=== PATIENT | male | born 1995 | race African-American/Black ===

== ENCOUNTER 2019-12-09 18:20 | Emergency (ER) | payer SELFPAY ==
--- NOTE | ~2019-12-09 | CT_ITS ---
EXAMINATION: CT BRAIN W/O DATE: 12/09/2019 19:24 INDICATION: New onset of seizure. Dizziness. TECHNIQUE: Computed tomography (CT) of the head was performed without intravenous contrast. The dose- length product was 605.33 mGy-cm. The mA was adjusted according to patient size. Iterative reconstruc tion technique was employed. COMPARISON: No prior studies for comparison. FINDINGS: Normal brain parenchymal volume for age. Normal dai-white differentiation. No acute intrac ranial hemorrhage, infarction, mass or mass effect. No ventriculomegaly or midline shift. Midline sagittal images demonstrate a normal corpus callosum, c raniovertebral junction and sella turcica. Basilar cisterns are patent. Paranasal sinuses and mastoids are pneumatized. No depressed skull fractures. IMPRESSION: 1. No acute intracranial abnormality. Reviewed, dictated and finalized at [facility]. Reviewed, dictated and finalized at [facility]. NER INTERN
[2019-12-09 18:39] VITALS: PULSE 94; RESP 18; TEMP 36.3; O2SAT 98
--- NOTE | 2019-12-09 19:06 | ECG_ITS ---
Measurements Intervals [place] Rate: 88 P: 32 MS: 185 QRS: 83 QRSD: 91 T: 29 QT: 358 QTc: 434 Interpretive Statements SINUS RHYTHM WITH SINUS ARRHYTHMIA ATRIAL PREMATURE COMPLEX BORDERLINE R WAVE PROGRESSION, ANTERIOR LEADS BASELINE ARTIFACT- I, II, III, AVR, AVL, AVF, V1-V6 BORDERLINE ECG Electronically Signed On 12-10-2019 8:40:56 SOFTWARE DEVELOPER by Lyle Weaver D.O.
[2019-12-09 19:28] LABS: Basophils Absolute Auto 0.01 K/mm3 (0.00-0.10); Basophils Percent Auto 0.1 % (0.0-1.0); Eosinophils Absolute Auto 0.05 K/mm3 (0.02-0.50); Eosinophils Percent Auto 0.7 % (1.0-6.0); Hematocrit 44.9 % (40.0-54.0); Hemoglobin 15.6 g/dL (14.0-18.0); Immature Granulocyte Absolute 0.03 K/mm3 (0.00-0.00); Immature Granulocyte Percent A 0.4 % (0.0-0.0); Lymphocytes Percent Auto 18.7 % (18.0-42.0); Mean Corpuscular HGB Conc 34.7 g/dL (32.0-36.0); Mean Corpuscular Hemoglobin 30.1 pg (27.0-31.0); Mean Corpuscular Volume 86.5 fL (78.0-102.0); Mean Platelet Volume 11.2 fl (8.7-11.0); Monocytes Absolute Auto 0.71 K/mm3 (0.10-0.90); Monocytes Percent Auto 9.5 % (2.0-11.0); Neutrophils Absolute Auto 5.3 K/mm3 (1.7-7.2); Neutrophils Percent Auto 70.6 % (50.0-70.0); Platelet Count Result 235 K/mm3 (150-420); Red Blood Count 5.19 M/mm3 (4.70-6.10); Red Cell Distribution Width 12.2 % (11.6-14.4); White Blood Count 7.5 K/mm3 (4.8-10.8)
--- NOTE | 2019-12-09 19:35 | ED.GENADULT ---
HPI - General Adult General Chief complaint: Seizure Stated complaint: headache, face pain, dizzy, throwing up Source: patient Mode of arrival: ambulatory Limitations: no limitations History of Present Illness HPI narrative: Dwayne is a 23-year-old man with a history of HIV treated with Triumeq that had a possible witness for seizure yesterday. His neighbor reports he saw him through a window go down have convulsions and lose consciousness. Dwayne's neighbor came in to help him and found him the reportedly postictal. He was confused and had myalgias. Upon waking up today he still has significant body aches nausea, and abdominal pain. he denies ever having a seizure before. He is unsure of his CD4 count. He denies any fevers, chills, URI type symptoms. he does report a circumferential headache. MD complaint: possible for seizure Related Data Allergies Allergy/AdvReac Type Severity Reaction Status Date / Time No Known Allergies Allergy Verified 12/09/19 18:45 Review of Systems Constitutional: Constitutional: Denies chills, Reports fatigue and Denies fever(s) Eyes: Eyes: Denies change in vision ENT: Reports system reviewed and no additional complaints, except as documented Cardiovascular: Cardiovascular: Denies chest pain and Denies radiating jaw, neck or arm pain Respiratory: Respiratory: Denies cough and Denies dyspnea Gastrointestinal: Gastrointestinal: Reports abdominal pain Genitourinary: Genitourinary: Reports no additional male genitourinary complaints Musculoskeletal: Musculoskeletal: Reports myalgias Integumentary/Breasts: Skin/Breast: Reports system reviewed and no additional complaints, except as docu Neurologic: Reports system reviewed and no additional complaints, except as documented Psychiatric: Psychiatric: Reports no additional psychiatric complaints Endocrine: Endocrine: Reports no additional endocrine complaints Hematologic/Lymphatic: Hematologic/Lymphatic: Reports no additional hematologic/lymphatic complaints Allergic/Immunologic: Allergic/Immunologic: Reports no additional allergic/immunologic complaints [facility] Social History Social History Gender identity (if verbalized by the patient): Male Exam Const: General: healthy appearing, no acute distress and alert; No confusion Orientation/consciousness: patient oriented x3 Limitations: No altered mental status HENMT: Head: normal to inspection, no contusions, no hematomas and no lacerations Ears: external ears abnormal Mouth: Yes Normal oral and palatal mucosa present Eyes: Pupils: Equal, round and reactive pupils present EOM: EOMs intact bilaterally Direct Ophthalmoscopy: No photophobia Neck: Neck: normal visual inspection Resp: Effort & Inspection: normal respiratory effort, not labored, no retractions and not tachypneic Auscultation: clear to auscultation bilaterally Cardio: Rate: regular rate Rhythm: regular rhythm Heart sounds: no murmurs GI: GI Palp: Yes Soft to palpation, No Tenderness to palpation present (GI) and No Guarding due to palpation present (GI) Back/Spine/Pelvis: Back: no CVA tenderness Skin: General skin exam: normal color Rashes: no rashes Neuro: General: patient oriented x3 and moves all extremities Psych: Mental Status: mental status grossly normal Course Course Emergency Course: Dwayne was seen and evaluated. He was in no acute distress and did not appear postictal anyway. However his seizures were reported yesterday. Despite having a normal neuro exam a possible new seizure in an HIV-positive patient was highly concerning so CT of his head was ordered as well as labs. labs and CT were unremarkable. Because of this he was given Toradol for body aches and discharged. We discussed at length the need for him to establish care with a primary care doctors of that he may get a referral to a neurologist for further workup. He expressed understanding. He was given return precauti
[2019-12-09 19:44] LABS: Add Urine Microscopic? NO; Appearance Urine Clear (Clear); Bilirubin Urine Negative (Negative); Blood Urine Negative (Negative); Color Urine Yellow (Yellow); Glucose Urine UA Negative (Negative); Ketones Urine Negative (Negative); Leukocyte Esterase Ur Negative (Negative); Nitrate Urine Negative (Negative); Protein Urine Negative (Negative); Specific Grav Ur 1.015 (1.010-1.020); Urobilinogen Urine 0.2 mg/dL (0.2-1.0); pH Urine 8.5 (5.0-8.0)
[2019-12-09 19:46] LABS: Alanine Aminotransferase 19 U/L (16-63); Albumin Level 4.3 g/dL (3.4-5.0); Alkaline Phosphatase 78 U/L (46-116); Anion Gap 13.9 mmol/L (7-16); Aspartate Amino Transferase 14 U/L (15-37); Bilirubin,Total 0.5 mg/dL (0.00-1.00); Blood Urea Nitrogen 7 mg/dL (7-18); Calcium 8.9 mg/dL (8.5-10.1); Carbon Dioxide 30 mmol/L (21-32); Chloride 102 mmol/L (98-108); Estimated CRCL calculation 87 ml/min; Estimated Glomerular Filt Rate > 60; Glucose 83 mg/dL (70-99); Lipase 100 U/L (73-393); Osmolality Calculated 291 mOsm/kg (285-295); Potassium 3.9 mmol/L (3.5-5.1); Sodium 142 mmol/L (136-145); Total Protein 8.2 g/dL (6.4-8.2)
[2019-12-09 19:48] LABS: Influenza Control Valid (Valid)
[2019-12-09 19:48] LABS: Creatine Kinase 120 U/L (39-308); Ethanol < 3 mg/dL (0-6)
[2019-12-09 19:49] LABS: Amphetamine Screen Urine Negative (Negative); Barbiturate Screen Urine Negative (Negative); Benzodiazepines Screen Urine Negative (Negative); Cannabinoid Screen Urine Negative (Negative); Cocaine Screen Urine Negative (Negative); Methadone Screen Urine Negative (Negative); Opiate Screen Urine Negative (Negative); Phencyclidine Screen Urine Negative (Negative)
--- NOTE | 2019-12-09 19:59 | PC.NURSE ---
RESTING ON STREACHER. SIDE RAILS UP. FRIEND AT BEDSIDE. APPEARS COMFORTABLE.
[2019-12-09] MEDS: KETOROLAC 30 MG/ML VIAL (*BKC) (20:26)
[2019-12-09 20:37] VITALS: BP 142/82; PULSE 78; RESP 18; O2SAT 98
[2019-12-12 14:08] LABS: RPR Screen Reactive (Non-Reactive)
[2019-12-12 14:24] LABS: RPR Titer Reactive 1:1
[2019-12-14 17:48] LABS: FTA-ABS Reactive (Nonreactive)
== END 2019-12-09 20:39 | disposition home or self-care (01) ==
PROVIDERS: Emergency Provider Family Medicine
DX: R56.9 Unspecified convulsions (principal)
CPT/HCPCS: 36415; 70450; 80053; 80307; 81003; 82550; 83690; 85025; 86592; 87804; 93005; 96374; 99283; 99284; J1885

== ENCOUNTER 2020-01-25 05:10 | Emergency (ER) | payer SELFPAY ==
[2020-01-25 05:11] VITALS: BP 125/104; PULSE 73; RESP 16; TEMP 36.6; O2SAT 100
--- NOTE | 2020-01-25 05:20 | ED.ALLEREA ---
HPI - Allergic Reaction General Chief complaint: Allergic Reaction Stated complaint: allergic reaction Time Seen by Provider: 01/25/20 05:18 Source: patient Mode of arrival: ambulatory Limitations: no limitations History of Present Illness HPI narrative: Patient is a 24-year-old male who presents for evaluation of eye irritation and allergic reaction. Patient reports he has a latex glove allergy, use gloves 3 days ago at work, brushed his eyes after using them, states some powder from the gloves deposited around his face, and after washing off, the area did become red, raised and bumpy. Patient has experienced some itching around the eyes. No actual eye pain, vision changes or eye watering. No wheezing, cough, shortness of breath, diarrhea. Patient has history of glove allergy in the past. He has no food allergies known to him. No new soaps, lotions or detergents. Of note, patient is HIV positive, currently compliant with his antiretrovirals, recently moved from [place], but has established care with the [facility]. He has an appointment there tomorrow. Related Data Allergies Allergy/AdvReac Type Severity Reaction Status Date / Time No Known Allergies Allergy Verified 01/25/20 05:11 Review of Systems Review of Systems: Narrative: CONSTITUTIONAL: Denies fever, chills, or sweats. EYES: Denies visual changes, redness, or discharge. ENT: Denies rhinorrhea, congestion, sore throat, no difficulty swallowing CARDIOVASCULAR: Denies chest pain RESPIRATORY: Denies cough or dyspnea. GASTROINTESTINAL: Denies abdominal pain, nausea, vomiting, or diarrhea. SKIN: Eye irritation, itching, erythema PMFSH Past Medical History Medical History (Updated 01/25/20 @ 05:31 by Daphnie Mcgowan MD) HIV (human immunodeficiency virus infection) Social History Social History (Updated 01/25/20 @ 05:30 by Daphnie Mcgowan MD) Smoking status: Never smoker Alcohol intake: current Substance use: never Gender identity (if verbalized by the patient): Male Exam Narrative: Exam Narrative: GENERAL: Awake, alert, conversant HEAD: Normocephalic, atraumatic. EYES: PERRLA and EOMI. Mild erythema, itching, raised urticaria surrounding the eyes. Conjunctive are clear without exudate. ENT: Nares clear, no rhinorrhea or epistaxis. Mucous membranes moist. NECK: Supple. CHEST: No respiratory distress, breathing even and non labored HEART: Regular rate, sinus rhythm ABDOMEN:Non distended, non tender EXTREMITIES: Normal range of motion. No edema. SKIN: Warm, dry, no rash. No urticaria of the chest, back, extremities. NEURO:No focal deficits. Alert and oriented x3 Course Course Emergency Course: Patient presents for evaluation of eye irritation, consistent with mild allergic reaction, contact dermatitis. Patient without any signs of severe anaphylaxis or severe allergic reaction. Will give patient oral medications, he also be discharged home with this. Patient has appropriate follow-up for his other medical conditions. He was then discharged home. Vital Signs Vital signs: Vital Signs Temperature 36.6 C 01/25/20 05:11 Pulse Rate 73 01/25/20 05:11 Respiratory Rate 16 01/25/20 05:11 Blood Pressure 125/104 H 01/25/20 05:11 Pulse Oximetry 100 01/25/20 05:11 Temperature 36.6 C 01/25/20 05:11 Pulse Rate 73 01/25/20 05:11 Respiratory Rate 16 01/25/20 05:11 Blood Pressure 125/104 H 01/25/20 05:11 Pulse Oximetry 100 01/25/20 05:11 Discharge Plan Discharge Clinical Impression: Allergic reaction Qualifiers: Encounter type: initial encounter Qualified Code(s): T78.40XA - Allergy, unspecified, initial encounter Patient Disposition: Home, Self-Care Condition: Stable Instructions: General Allergic Reaction (ED) Additional Instructions: Please contact your primary care physician for follow up from this visit. If you experience worsening pain, vomiting that does not stop, bleeding
[2020-01-25] MEDS: FAMOTIDINE 20 MG TABLET PO (05:43)
[2020-01-25] MEDS: DEXAMETHASONE SOD PHOS INJ 4 MG/ML VIAL 10 MG BY MOUTH (05:43)
[2020-01-25 06:19] VITALS: BP 122/78; PULSE 88; RESP 17; O2SAT 97
== END 2020-01-25 06:20 | disposition home or self-care (01) ==
LOC: ANHED 05:36
PROVIDERS: Emergency Provider Emergency Medicine
DX: T65.811A Toxic effect of latex, accidental (unintentional), initial encounter (principal); H57.89 Other specified disorders of eye and adnexa; Z21 Asymptomatic human immunodeficiency virus [HIV] infection status
CPT/HCPCS: 99283; A9270; J1100

== ENCOUNTER 2020-01-26 16:15 | Emergency (ER) | payer SELFPAY ==
--- NOTE | ~2020-01-26 | XR_ITS ---
EXAMINATION: XR chest 2V DATE: 01/26/2020 16:51 INDICATION: Hiccups TECHNIQUE: PA and lateral views of the chest are obtained. COMPARISON: None available FINDINGS: There are minimal airspace opacities in the left lower lobe. There is no pleural effusion o r pneumothorax. The cardiomediastinal silhouette is normal. The visualized bones and soft tissues are unremarkable. IMPRESSION: 1. Minimal airspace opacities of the left lower lobe, consistent with pneumonia versus atelectasis. Reviewed, dictated and finalized at [facility].
[2020-01-26 16:21] VITALS: BP 126/90; PULSE 89; RESP 16; TEMP 36.6; O2SAT 98
--- NOTE | 2020-01-26 16:30 | ED.GENADULT ---
HPI - General Adult General Chief complaint: Unspecified Stated complaint: hiccups, back pain Time Seen by Provider: 01/26/20 16:30 Source: patient Mode of arrival: ambulatory Limitations: no limitations History of Present Illness HPI narrative: Patient is a 24 year old male who presents to the emergency department with complaints of constant hiccups since last night. Patient was seen in this ED yesterday for a rash under his right eye. He states that he forgot that he was allergic to latex and he had latex gloves on and touched his right eye. He was prescribed a steroid and discharged home last night. He then notes constant hiccups that started in the middle of the night. He woke up and vomited a burgundy color. Patient reports right upper back pain from his hiccups that worsens when he is walking. He tried some home remedies for the hiccups with no relief. His hiccups worsen after he eats. He denies cough, cold, fever, sore throat, nausea, or diarrhea. He has not taken any pain medications. Patient has a history of HIV, seizures, and an appendectomy. His fiance is in the room and he recently moved her from [place]. complaint: Hiccups Onset (ago): day(s) (last night) Pain Consistency: constant Relieving factors: none Exacerbating factors: eating Associated symptoms: other (back pain, vomiting) Related Data Allergies Allergy/AdvReac Type Severity Reaction Status Date / Time No Known Allergies Allergy Verified 01/26/20 16:26 Review of Systems Review of Systems: All systems reviewed & are unremarkable except as noted in HPI and below Constitutional: Constitutional: Denies chills, Denies fever(s) and Reports other (hiccups) Eyes: Eyes: Reports other (rash 0.5inches x 0.5inches under right eye) ENT: Denies sore throat Respiratory: Respiratory: Denies cough Gastrointestinal: Gastrointestinal: Denies diarrhea, Denies nausea and Reports vomiting Musculoskeletal: Musculoskeletal: Reports back pain Integumentary/Breasts: Skin/Breast: Reports rash (under right eye) [facility] Past Medical History Medical History HIV (human immunodeficiency virus infection) Seizure Surgical History Surgical History Hx of appendectomy Social History Social History Smoking status: Never smoker Alcohol intake: current Substance use: never Gender identity (if verbalized by the patient): Male Exam Const: General: cooperative, healthy appearing and no acute distress HENMT: Head: normocephalic and atraumatic Mouth: Yes moist mucous membranes Eyes: Pupils: Equal, round and reactive pupils present EOM: EOMs intact bilaterally Neck: Neck: supple Resp: Effort & Inspection: normal respiratory effort and no respiratory distress Auscultation: clear to auscultation bilaterally Cardio: Rate: regular rate Rhythm: regular rhythm Heart sounds: no murmurs GI: Inspection: normal to inspection and non-distended GI Palp: No abdominal tenderness and Yes Soft to palpation Auscultation: normal bowel sounds Back/Spine/Pelvis: Back: No back tenderness and other (decreased ROM when sitting up) Skin: Rashes: rashes noted (0.5inx.5 inch rash under rt eye) Neuro: General: patient oriented x3 (alert) and no focal motor deficits Extrem: General: full ROM and no edema Psych: Mental Status: mental status grossly normal Affect: normal affect Course Vital Signs Vital signs: Vital Signs Temperature 97.8 F 01/26/20 16:21 Pulse Rate 89 01/26/20 16:21 Respiratory Rate 16 01/26/20 16:21 Blood Pressure 126/90 01/26/20 16:21 Pulse Oximetry 98 01/26/20 16:21 Temperature 97.8 F 01/26/20 16:21 Pulse Rate 78 01/26/20 18:11 Respiratory Rate 18 01/26/20 18:11 Blood Pressure 138/75 01/26/20 18:11 Pulse Oximetry 98 01/26/20 18:11 Medical Decision Making V
[2020-01-26] MEDS: AZITHROMYCIN 250 MG TABLET 1000 MG PO (18:10)
[2020-01-26 18:11] VITALS: BP 138/75; PULSE 78; RESP 18; O2SAT 98
== END 2020-01-26 18:12 | disposition home or self-care (01) ==
PROVIDERS: Emergency Provider Emergency Medicine
DX: R06.6 Hiccough (principal); J18.9 Pneumonia, unspecified organism; G40.909 Epilepsy, unspecified, not intractable, without status epilepticus; Z21 Asymptomatic human immunodeficiency virus [HIV] infection status
CPT/HCPCS: 71046; 99283; A9270

== ENCOUNTER 2020-03-02 14:24 | Outpatient (NON) | payer MEDICAID, SELFPAY ==
[2020-03-03 13:05] LABS: SARS-CoV-2 RNA PCR Negative
== END 2020-03-02 14:25 ==
PROVIDERS: PCP Family Medicine; Visit Provider Family Medicine
DX: R50.9 Fever, unspecified (principal); Z20.828 Contact with and (suspected) exposure to other viral communicable diseases
CPT/HCPCS: 87635; U0003

== ENCOUNTER 2020-04-22 21:35 | Emergency (ER) | payer MEDICAID, SELFPAY ==
--- NOTE | ~2020-04-22 | CT_ITS ---
EXAMINATION: CT brain wo con DATE: 04/22/2020 22:23 INDICATION: Severe generalized headache radiating to neck. The puncture 2 days ago. TECHNIQUE: Computed tomography (CT) of the head was performed without intravenous contrast. The mA wa s adjusted according to patient size. Iterative reconstruction technique was employed. Exam dose: 83 2.33 mGy-cm total exam DLP. COMPARISON: 12/09/2019 CT brain FINDINGS: No intracranial mass lesion or hemorrhage, midline shift or mass effect. Normal ventricular size. No subdural or epidural hematoma. No evidence of skull fracture. No fracture or bone destruction of the cranial vault. Included paranasal sinuses and mastoid air cell s are normally developed and aerated. IMPRESSION: Negative Reviewed, dictated and finalized at [facility]. Reviewed, dictated and finalized at location [facility]. IMPRESSION: Negative
[2020-04-22 21:35] VITALS: BP 139/70; PULSE 74; RESP 22; TEMP 36.6; O2SAT 100
[2020-04-22] MEDS: MORPHINE SULFATE 4 MG/ML INJ IV PUSH (22:01)
[2020-04-22] MEDS: ONDANSETRON INJ 4 MG/2 ML VIAL IV PUSH (22:01)
--- NOTE | 2020-04-22 22:03 | ED.HA ---
HPI - Headache General Chief Complaint: Headache Stated Complaint: head ache, pain in neck Source: patient and family Mode of arrival: ambulatory Limitations: no limitations History of Present Illness HPI Narrative: Patient is a 24-year-old male who presents to the emergency department after being hospitalized in the ICU for status epilepticus he was just released yesterday. Patient states that he did have a lumbar puncture x2 2 days ago since that time he has developed a headache. Patient states that the headache is much more severe if he has upward upright, it does get better if he is laying down. Patient states that he was nauseated and did have an emesis yesterday, although today he has been able to tolerate a meal and several glasses of tea. He has been taking Tylenol and Motrin without much relief. Patient denies fevers chills nausea or vomiting. Patient denies any chest pain shortness of breath or other abdominal complaints. Patient does have a diagnosis of HIV as well, and has been noncompliant with both his HIV meds and the epilepsy meds. Says he was discharged from the hospital he has been taking them for the most part. MD elicited complaint: headache Onset (ago): day(s) Onset description: gradually Location: diffuse Severity: moderate Quality & Timing: aching and throbbing Exacerbating factors: sitting/standing Relieving factors: rest ( Laying down) Context: recent spinal/epidural procedure Associated symptoms: nausea, vomiting and photophobia Treatments prior to arrival: acetaminophen and ibuprofen Related Data Home Medications Medication Instructions Recorded Confirmed abacavir 600 mg-dolutegravir 50 1 tablet PO DAILY 03/02/20 04/22/20 mg-lamivudine 300 mg tablet levetiracetam [Keppra] 250 mg PO BID 04/22/20 04/22/20 Allergies Allergy/AdvReac Type Severity Reaction Status Date / Time No Known Allergies Allergy Verified 03/02/20 13:40 Review of Systems Review of Systems: All systems reviewed & are unremarkable except as noted in HPI and below Constitutional: Constitutional: Denies as per HPI, Denies no additional constitutional complaints, Denies chills, Denies fatigue, Denies fever(s) and Denies weakness Eyes: Eyes: Denies as per HPI, Denies no additional eye complaints, Denies change in vision and Reports photophobia ENT: Denies system reviewed and no additional complaints, except as documented, Denies as per HPI, Denies dysphagia, Denies vertigo, Denies dizziness, Denies epistaxis, Denies nasal congestion and Denies sore throat Cardiovascular: Cardiovascular: Denies as per HPI, Denies no additional cardiovascular complaints, Denies chest pain, Denies rapid heart rate, Denies radiating jaw, neck or arm pain and Denies slow heart rate Respiratory: Respiratory: Denies as per HPI, Denies no additional respiratory complaints, Denies chest congestion, Denies cough, Denies dyspnea and Denies wheezing Gastrointestinal: Gastrointestinal: Denies as per HPI, Denies no additional gastrointestinal complaints, Denies abdominal pain, Denies bloating, Denies constipation, Denies heartburn, Denies diarrhea, Reports nausea and Reports vomiting Musculoskeletal: Musculoskeletal: Reports back pain, Denies myalgias, Denies arthralgias, Denies joint swelling and Reports muscle cramps Comments: neck pain bilaterally Neurologic: Denies confusion, Denies vertigo, Denies dizziness, Denies syncope, Reports headache(s), Denies focal weakness, Denies numbness and Denies weakness Psychiatric: Psychiatric: Reports no additional psychiatric complaints Endocrine: Endocrine: Reports no additional endocrine complaints Hematologic/Lymphatic: Hematologic/Lymphatic: Reports no additional hematologic/lymphatic complaints Allergic/Immunologic: Allergic/Immunologic: Reports no additional allergic/immunologic complaints PMFSH Past Medical History Medical History HIV (human immunodefi
[2020-04-22 22:10] LABS: Hematocrit 41.1 % (40.0-54.0); Hemoglobin 15.1 g/dL (14.0-18.0); Mean Corpuscular HGB Conc 36.7 g/dL (32.0-36.0); Mean Corpuscular Hemoglobin 30.2 pg (27.0-31.0); Mean Corpuscular Volume 82.2 fL (78.0-102.0); Mean Platelet Volume 10.9 fl (8.7-11.0); Platelet Count Result 284 K/mm3 (150-420); Red Cell Distribution Width 11.8 % (11.6-14.4); White Blood Count 9.1 K/mm3 (4.8-10.8)
[2020-04-22 22:20] LABS: INR 1.1; Prothrombin Time 11.3 Seconds (9.64-11.0)
[2020-04-22 22:25] LABS: Acetaminophen 0 ug/mL (10-30); Alanine Aminotransferase 30 U/L (16-63); Albumin Level 3.9 g/dL (3.4-5.0); Alkaline Phosphatase 67 U/L (46-116); Anion Gap 14.2 mmol/L (7-16); Aspartate Amino Transferase 12 U/L (15-37); Bilirubin,Total 0.6 mg/dL (0.00-1.00); Blood Urea Nitrogen 13 mg/dL (7-18); Calcium 8.9 mg/dL (8.5-10.1); Carbon Dioxide 25 mmol/L (21-32); Chloride 104 mmol/L (98-108); Estimated CRCL calculation 105 ml/min; Estimated Glomerular Filt Rate > 60; Glucose 109 mg/dL (70-99); Osmolality Calculated 291 mOsm/kg (285-295); Potassium 3.2 mmol/L (3.5-5.1); Sodium 140 mmol/L (136-145); Total Protein 7.7 g/dL (6.4-8.2)
[2020-04-22 22:41] LABS: Band Neutrophils Percent 0 % (0-6); Basophils Percent Manual 0 % (0-1); Eosinophils Absolute Manual 0.09 K/mm3 (0.02-0.5); Eosinophils Percent Manual 1 % (1-6); Lymphocytes Absolute Manual 2.36 K/mm3 (1.1-4.5); Lymphocytes Percent Manual 26 % (18-44); Monocytes Absolute Manual 1.36 K/mm3 (0.1-0.90); Monocytes Percent Manual 15 % (3-9); Neutrophils Absolute Manual 5.27 K/mm3 (1.3-6.7); Neutrophils Percent Manual 58 % (46-73); Platelet Estimate Adequate (Adequate)
--- NOTE | 2020-04-22 22:45 | PC.NURSE ---
ICE WATER PROVIDED TO PATIENT PER ERP APPROVAL
--- NOTE | 2020-04-22 23:26 | PC.NURSE ---
[facility] CONTACTED BY [facility] FOR POSSIBLE TRANSFER
[2020-04-22 23:30] VITALS: BP 141/77; PULSE 80; RESP 15; O2SAT 100
--- NOTE | 2020-04-22 23:32 | PC.NURSE ---
REPORT PROVIDED TO SELIN ONTIVEROS
--- NOTE | 2020-04-22 23:34 | PC.NURSE ---
Report received, pt. resting c s.o. at bedside VSS, awaiting call back from [facility] to speak c ERP.
--- NOTE | 2020-04-22 23:57 | PC.NURSE ---
Pt. lying supine, requesting something to eat, stating he is hungry. Chips and crackers given, pt. milly. well. Requesting pain med and states H/A is still there . Awaiting call from [facility] to speak c ERP. Pt. and S.O. updated on status.
[2020-04-23] MEDS: MORPHINE SULFATE 4 MG/ML INJ IV PUSH ×2 (00:05→02:33)
--- NOTE | 2020-04-23 00:33 | PC.NURSE ---
Call back from [facility]. Spoke c ADELITA Vance and they accept for transfer. Transfer paperwork signed.
[2020-04-23 01:01] VITALS: BP 127/85; PULSE 75; RESP 20; TEMP 36.7; O2SAT 99
--- NOTE | 2020-04-23 01:07 | PC.NURSE ---
Pt. resting, requesting water to drink, VSS, awaiting call back from [facility] for bed assignment and report.
[2020-04-23 01:08] VITALS: BP 130/85; PULSE 84; RESP 20; TEMP 36.6; O2SAT 98
[2020-04-23 02:14] VITALS: BP 130/75; PULSE 82; RESP 20; TEMP 36.8; O2SAT 99
--- NOTE | 2020-04-23 02:18 | PC.NURSE ---
Call back c bed assignment from [facility]. Call page placed to [email or web address] for transfer.
--- NOTE | 2020-04-23 02:51 | PC.NURSE ---
Report given to [facility] crew, pt. transfers to cot s difficulty.
== END 2020-04-23 02:52 | disposition short-term general hospital (02) ==
PROVIDERS: Emergency Provider Emergency Medicine
DX: G97.1 Other reaction to spinal and lumbar puncture (principal); B20 Human immunodeficiency virus [HIV] disease
CPT/HCPCS: 36415; 70450; 80053; 80307; 85025; 85610; 96374; 96375; 96376; 99283; 99285; J2270; J2405

== ENCOUNTER 2020-08-23 19:23 | Emergency (ER) | payer SELFPAY ==
[2020-08-23 19:30] VITALS: BP 108/67; PULSE 90; RESP 16; TEMP 36.6; O2SAT 98
--- NOTE | 2020-08-23 20:47 | ED.HA ---
HPI - Headache General Chief Complaint: Headache Stated Complaint: headache Source: patient Mode of arrival: ambulatory Limitations: no limitations History of Present Illness HPI Narrative: Patient says he had a headache at work. He said he got upset about his managers telling him what to do and he had too much to do. Because of this he say he got upset and developed a headache. MD elicited complaint: headache Pertinent past history: HIV (He is taking Truvada for HIV. He says he has had headaches with his medicines for many months and nothing has changed with thes headaches. They usually involve his whole head and come and go quickly within an hour. The headache started while he was at work and resolved before he came here. ) Onset description: suddenly Location: diffuse Severity: moderate Pain scale (0-10): 5 Quality & Timing: aching and similar to previous headaches Exacerbating factors: other (stress) Relieving factors: other (leaving work) Associated symptoms: other (stress) Treatments prior to arrival: other (relaxation) Related Data Home Medications Medication Instructions Recorded Confirmed levetiracetam [Keppra] 500 mg PO BID 04/22/20 08/23/20 Truvada 1 tab-cap PO DAILY 08/23/20 08/23/20 Allergies Allergy/AdvReac Type Severity Reaction Status Date / Time No Known Allergies Allergy Verified 03/02/20 13:40 Review of Systems Review of Systems: Narrative: Review of systems negative, except as noted in HPI. Neurologic: Comments: No other symptoms PMFSH Past Medical History Medical History HIV (human immunodeficiency virus infection) Seizure Surgical History Surgical History Hx of appendectomy Family History Family History (Updated 08/23/20 @ 21:50 by Tariq Boggs MD) Father Hypertension Mother Epilepsy Social History Social History Smoking status: Former smoker Alcohol intake: current Substance use: never Gender identity (if verbalized by the patient): Male Exam Narrative: Exam Narrative: Cheerful, in no distress, says he came in to get a note for work, but his headache has resolved. Const: Orientation/consciousness: patient oriented x3 HENMT: Head: normal to inspection Ears: external ears normal and TM's normal bilaterally General nose exam: Normal nares present Face and sinus: normal facial exam Mouth: Yes Normal oral and palatal mucosa present Eyes: EOM: EOMs intact bilaterally Neck: Neck: no meningeal signs Chest: Chest palpation & inspection: normal inspection of the chest Resp: Effort & Inspection: normal respiratory effort Auscultation: clear to auscultation bilaterally Cardio: Rate: regular rate Rhythm: regular rhythm GI: GI Palp: Yes Soft to palpation Auscultation: normal bowel sounds : Testes: Testes normal Skin: General skin exam: normal color Neuro: General: patient oriented x3, moves all extremities and CN's II-XI intact bilaterally Extrem: General: normal to inspection Psych: Mental Status: mental status grossly normal Course Course Emergency Course: I told him I would provide him with a note for work after he was examined. As he needed nothing else I asked him to follow up with his doctor as soon as possible, and he was discharged. I did not feel I should change any of his medications, and since his headaches have been going on long-term and are unchanged, I felt no testing was needed now. He has not been off his medications. Vital Signs Vital signs: Vital Signs Temperature 36.6 C 08/23/20 19:30 Pulse Rate 90 08/23/20 19:30 Respiratory Rate 16 08/23/20 19:30 Blood Pressure 108/67 08/23/20 19:30 Pulse Oximetry 98 08/23/20 19:30 Temperature 36.6 C 08/23/20 19:30 Pulse Rate 90 08/23/20 19:30 Respiratory Rate 16 08/23/20 19:30 Blood Pressure
== END 2020-08-23 20:00 | disposition home or self-care (01) ==
PROVIDERS: Emergency Provider Emergency Medicine
DX: R51.9 Headache, unspecified (principal); B20 Human immunodeficiency virus [HIV] disease; R56.9 Unspecified convulsions
CPT/HCPCS: 99281

== ENCOUNTER 2020-08-31 17:29 | Emergency (ER) | payer SELFPAY ==
[2020-08-31 17:40] VITALS: BP 110/60; PULSE 99; RESP 16; TEMP 36.9; O2SAT 98
--- NOTE | 2020-08-31 18:27 | ED.GENADULT ---
HPI - General Adult General Chief complaint: Unspecified Stated complaint: fever Related Data Home Medications Medication Instructions Recorded Confirmed levetiracetam [Keppra] 500 mg PO BID 04/22/20 08/31/20 Truvada 1 tab-cap PO DAILY 08/23/20 08/31/20 Allergies Allergy/AdvReac Type Severity Reaction Status Date / Time No Known Allergies Allergy Verified 03/02/20 13:40 PMFSH Past Medical History Medical History (Updated 08/31/20 @ 18:32 by Tariq Boggs MD) HIV (human immunodeficiency virus infection) Seizure Surgical History Surgical History Hx of appendectomy Family History Family History (Updated 08/23/20 @ 21:50 by Tariq Boggs MD) Father Hypertension Mother Epilepsy Social History Social History Smoking status: Former smoker Alcohol intake: current Substance use: never Gender identity (if verbalized by the patient): Male Discharge Plan Discharge Clinical Impression: Fever Patient Disposition: Home, Self-Care Condition: Stable Instructions: Antibiotic Form Additional Instructions: Follow up with HIV doctor by Saturday Prescriptions: No Action levetiracetam [Keppra] 250 mg Tablet 500 mg PO BID RF: 0 Truvada 1 tab-cap PO DAILY RF: 0 Follow-up/Referrals: UNKNOWN,DOCTOR [Primary Care Provider] - Stand Alone Forms: Work/School Release IP Time of Disposition: 18:30
[2020-08-31 18:35] VITALS: PULSE 100; RESP 14; O2SAT 97
--- NOTE | 2020-08-31 18:47 | ED.GENADULT ---
HPI - General Adult General Chief complaint: Unspecified Stated complaint: fever Time Seen by Provider: 08/31/20 18:35 Source: patient Mode of arrival: ambulatory Limitations: no limitations History of Present Illness HPI narrative: Patient comes in stating he had a fever today of 100.5. Because of this he was forced to leave work he says. He wants a note stating he was seen here, and that he is ok. THe Rn asked him if he wanted a covid test or any labs. He refuses any testing. I also spoke with him and he refuses any testing. He denies any symptoms. Related Data Home Medications Medication Instructions Recorded Confirmed levetiracetam [Keppra] 500 mg PO BID 04/22/20 08/31/20 Truvada 1 tab-cap PO DAILY 08/23/20 08/31/20 Allergies Allergy/AdvReac Type Severity Reaction Status Date / Time No Known Allergies Allergy Verified 03/02/20 13:40 Review of Systems Review of Systems: All systems reviewed & are unremarkable except as noted in HPI and below (He denies any symptoms except temp of 100.5 earlier today.) [facility], [facility] Past Medical History Medical History HIV (human immunodeficiency virus infection) Seizure Surgical History Surgical History Hx of appendectomy Family History Family History Father Hypertension Mother Epilepsy Social History Social History Smoking status: Former smoker Alcohol intake: current Substance use: never Gender identity (if verbalized by the patient): Male Course Vital Signs Vital signs: Vital Signs Temperature 36.9 C 08/31/20 17:40 Pulse Rate 99 08/31/20 17:40 Respiratory Rate 16 08/31/20 17:40 Blood Pressure 110/60 08/31/20 17:40 Pulse Oximetry 98 08/31/20 17:40 Temperature 36.9 C 08/31/20 17:40 Pulse Rate 100 08/31/20 18:35 Respiratory Rate 14 08/31/20 18:35 Blood Pressure 110/60 08/31/20 17:40 Pulse Oximetry 97 08/31/20 18:35 Medical Decision Making Vital Signs Vital Signs: Vital Signs Temperature 36.9 C 08/31/20 17:40 Pulse Rate 99 08/31/20 17:40 Respiratory Rate 16 08/31/20 17:40 Blood Pressure 110/60 08/31/20 17:40 Pulse Oximetry 98 08/31/20 17:40 Temperature 36.9 C 08/31/20 17:40 Pulse Rate 100 08/31/20 18:35 Respiratory Rate 14 08/31/20 18:35 Blood Pressure 110/60 08/31/20 17:40 Pulse Oximetry 97 08/31/20 18:35 Discharge Plan Discharge Clinical Impression: Fever Qualifiers: Fever type: unspecified Qualified Code(s): R50.9 - Fever, unspecified Patient Disposition: Home, Self-Care Condition: Stable Instructions: Fever in Adults (ED), HIV Infection (ED) Additional Instructions: Follow up with HIV doctor by Saturday Prescriptions: No Action levetiracetam [Keppra] 250 mg Tablet 500 mg PO BID RF: 0 Truvada 1 tab-cap PO DAILY RF: 0 Follow-up/Referrals: UNKNOWN,DOCTOR [Primary Care Provider] - Stand Alone Forms: Work/School Release IP Time of Disposition: 18:30
--- NOTE | 2020-08-31 18:55 | ED.GENADULT ---
HPI - General Adult General Chief complaint: Unspecified Stated complaint: fever Time Seen by Provider: 08/31/20 18:35 Source: patient Mode of arrival: ambulatory Limitations: no limitations History of Present Illness HPI narrative: He states he comes in to get note so he may return to work. He left because he had a temp of 100.5 earlier today, and was forced to leave Related Data Home Medications Medication Instructions Recorded Confirmed levetiracetam [Keppra] 500 mg PO BID 04/22/20 08/31/20 Truvada 1 tab-cap PO DAILY 08/23/20 08/31/20 Allergies Allergy/AdvReac Type Severity Reaction Status Date / Time No Known Allergies Allergy Verified 03/02/20 13:40 Review of Systems Review of Systems: Narrative: He denies any other symptoms except as above, temperature of 100.5 earlier today. He denies any cough or shortness of breath or runny nose. PMFSH Past Medical History Medical History HIV (human immunodeficiency virus infection) Seizure Surgical History Surgical History Hx of appendectomy Family History Family History Father Hypertension Mother Epilepsy Social History Social History Smoking status: Former smoker Alcohol intake: current Substance use: never Gender identity (if verbalized by the patient): Male Exam Const: General: no acute distress HENMT: Head: normal to inspection Ears: TM abnormal Face and sinus: normal facial exam Teeth and gingiva: dentition normal Eyes: Conjunctivae: conjunctivae normal Neck: Neck: normal visual inspection and no lymphadenopathy Chest: Chest palpation & inspection: normal inspection of the chest Resp: Effort & Inspection: normal respiratory effort Auscultation: clear to auscultation bilaterally Cardio: Rate: regular rate Rhythm: regular rhythm GI: GI Palp: Yes Soft to palpation Auscultation: normal bowel sounds Skin: General skin exam: normal color Neuro: General: patient oriented x3 and moves all extremities Speech: normal speech Extrem: General: normal to inspection Psych: Appearance: grossly normal Mental Status: mental status grossly normal Affect: normal affect Thought content: Yes Normal thought content present Course Course Emergency Course: I provided him with a note, stating he did not appear to be ill, and the time he was seen. I asked him to follow up with his infectious disease doctor no later than Saturday. He said he would. Vital Signs Vital signs: Vital Signs Temperature 36.9 C 08/31/20 17:40 Pulse Rate 99 08/31/20 17:40 Respiratory Rate 16 08/31/20 17:40 Blood Pressure 110/60 08/31/20 17:40 Pulse Oximetry 98 08/31/20 17:40 Temperature 36.9 C 08/31/20 17:40 Pulse Rate 100 08/31/20 18:35 Respiratory Rate 14 08/31/20 18:35 Blood Pressure 110/60 08/31/20 17:40 Pulse Oximetry 97 08/31/20 18:35 Medical Decision Making Vital Signs Vital Signs: Vital Signs Temperature 36.9 C 08/31/20 17:40 Pulse Rate 99 08/31/20 17:40 Respiratory Rate 16 08/31/20 17:40 Blood Pressure 110/60 08/31/20 17:40 Pulse Oximetry 98 08/31/20 17:40 Temperature 36.9 C 08/31/20 17:40 Pulse Rate 100 08/31/20 18:35 Respiratory Rate 14 08/31/20 18:35 Blood Pressure 110/60 08/31/20 17:40 Pulse Oximetry 97 08/31/20 18:35 Discharge Plan Discharge Clinical Impression: Fever Qualifiers: Fever type: unspecified Qualified Code(s): R50.9 - Fever, unspecified Patient Disposition: Home, Self-Care Condition: Stable Instructions: Fever in Adults (ED), HIV Infection (ED) Additional Instructions: Follow up with HIV doctor by Saturday Prescriptions: No Action levetiracetam [Keppra] 250 mg Tablet 500 mg PO BID RF: 0 Truvada 1 tab-cap PO DAILY
== END 2020-08-31 18:36 | disposition home or self-care (01) ==
PROVIDERS: Emergency Provider Emergency Medicine
DX: R50.9 Fever, unspecified (principal)
CPT/HCPCS: 99281; 99282

== ENCOUNTER 2023-07-29 18:11 | Emergency (ER) | payer OTHER, SELFPAY ==
[2023-07-29 18:13] VITALS: BP 138/98; PULSE 90; RESP 19; TEMP 36.6; O2SAT 98
--- NOTE | 2023-07-29 18:41 | ED.NAVMDI ---
HPI - Nausea/Vomiting/Diarrhea General Chief complaint: Nausea/Vomiting/Diarrhea Stated complaint: nausea Time Seen by Provider: 07/29/23 18:29 Source: patient Mode of arrival: ambulatory Limitations: no limitations History of Present Illness HPI Narrative: 27 year old male presents to the Emergency Department complaining of nausea and vomiting. Onset several hours ago. Patient thinks he maybe ate something bad. No diarrhea. Denies abdominal pain. Denies fever, cough, congestion, sore throat. Urinating normally. No known exposure. MD elicited complaint: nausea Pertinent past history: bulimia Associated nausea: Yes Associated abdominal pain: No Location of pain: none Exacerbating factors: none Relieving factors: none Related Data Home Medications Medication Instructions Recorded Confirmed Truvada 1 tab-cap PO DAILY 08/23/20 07/29/23 levetiracetam 1,000 mg tablet 1,000 mg PO BID 07/29/23 07/29/23 Allergies Allergy/AdvReac Type Severity Reaction Status Date / Time No Known Allergies Allergy Verified 07/29/23 18:16 Review of Systems Review of Systems: All systems reviewed & are unremarkable except as noted in HPI and below Constitutional: Constitutional: Reports as per HPI, Reports no additional constitutional complaints, Denies chills and Denies fever(s) Eyes: Eyes: Reports as per HPI ENT: Reports system reviewed and no additional complaints, except as documented Cardiovascular: Cardiovascular: Reports as per HPI Respiratory: Respiratory: Reports as per HPI, Denies chest congestion and Denies cough Gastrointestinal: Gastrointestinal: Reports as per HPI, Denies abdominal pain, Denies diarrhea, Reports nausea and Reports vomiting Genitourinary: Genitourinary: Reports no additional male genitourinary complaints and Denies dysuria Musculoskeletal: Musculoskeletal: Reports no additional musculoskeletal complaints Integumentary/Breasts: Skin/Breast: Reports system reviewed and no additional complaints, except as docu Neurologic: Reports system reviewed and no additional complaints, except as documented PMFSH Past Medical History Medical History (Updated 07/29/23 @ 18:50 by Deni Tsai MD) HIV (human immunodeficiency virus infection) Seizure Surgical History Surgical History Hx of appendectomy Family History Family History Father Hypertension Mother Epilepsy Social History Social History Smoking status: Former smoker Alcohol intake: current Substance use: never Gender identity (if verbalized by the patient): Male Exam Const: General: healthy appearing Nutritional Appearance: well nourished Orientation/consciousness: patient oriented x3 Limitations: no limitations HENMT: Head: normal to inspection Ears: external ears normal Face/Nose/Sinus: Normal external nose present Face and sinus: normal facial exam Mouth: Yes Normal oral and palatal mucosa present Teeth and gingiva: dentition normal Throat: posterior oropharynx normal Eyes: Conjunctivae: conjunctivae normal Cornea: corneas normal Pupils: Equal, round and reactive pupils present EOM: EOMs intact bilaterally Direct Ophthalmoscopy: no photophobia Neck: Neck: normal visual inspection Chest: Chest palpation & inspection: normal inspection of the chest Resp: Effort & Inspection: normal respiratory effort Auscultation: clear to auscultation bilaterally Cardio: Rate: regular rate Rhythm: regular rhythm Heart sounds: Murmur heart sound present GI: Inspection: non-distended GI Palp: Yes Soft to palpation and No Tenderness to palpation present (GI) Auscultation: normal bowel sounds : General: Yes bladder normal to palpation Back/Spine/Pelvis: Back: no CVA tenderness Skin: General skin exam: normal color Rashes: no rashes Wounds: no woun
[2023-07-29] MEDS: SODIUM CHLORIDE 0.9% IV 1,000 ML 999 ML IV CONT (18:49)
[2023-07-29] MEDS: ONDANSETRON INJ 4 MG/2 ML VIAL IV PUSH (18:50)
[2023-07-29 19:12] VITALS: BP 136/95; PULSE 78; RESP 20; O2SAT 99
[2023-07-29 19:33] VITALS: BP 135/85; PULSE 74; RESP 18; TEMP 36.6; O2SAT 99
== END 2023-07-29 19:39 | disposition home or self-care (01) ==
PROVIDERS: Emergency Provider Emergency Medicine
DX: K52.9 Noninfective gastroenteritis and colitis, unspecified (principal); G40.909 Epilepsy, unspecified, not intractable, without status epilepticus; Z21 Asymptomatic human immunodeficiency virus [HIV] infection status; Z79.899 Other long term (current) drug therapy; Z87.891 Personal history of nicotine dependence
CPT/HCPCS: 96361; 96374; 99284; J2405; J7030